=== PATIENT | male | born 2000 | race Caucasian/White ===

== ENCOUNTER 2022-12-05 18:47 | Emergency (ER) | payer OTHER ==
[2022-12-05] MEDS ORDERED: Ondansetron 4 MG/2 ML SDV IVPUSH ONE (21:00)
[2022-12-05] MEDS ORDERED: Lactated Ringers 1,000 ML IV ONE (21:00)
[2022-12-05 21:46] LABS: CARBON DIOXIDE,CO2 24.8 mmol/L (21.0-32.0); POTASSIUM,K 3.9 mmol/L (3.5-5.1)
[2022-12-05 21:48] LABS: CORONAVIRUS COVID-19 NAA NEGATIVE (NEGATIVE); INFLUENZA A NAA NEGATIVE (NEGATIVE); INFLUENZA B NAA NEGATIVE (NEGATIVE); RESPIRATORY SYNCYTIAL VIR NAA NEGATIVE (NEGATIVE)
[2022-12-05] MEDS ORDERED: Iopamidol 755 MG/ML 500 ML Multipack Bottle IVPUSH STA (22:12)
[2022-12-05] MEDS ORDERED: Ertapenem 1 GM in Sodium Chloride 0.9% 50 ML IV ONE (23:08)
[2022-12-06] MEDS ORDERED: Ondansetron 4 MG/2 ML SDV IVPUSH ONE (00:32)
[2022-12-06] MEDS ORDERED: Lactated Ringers 1,000 ML IV ONE (00:32)
[2022-12-06] MEDS ORDERED: Acetaminophen 500 MG Tab PO ONE (01:36)
== END 2022-12-06 01:50 | disposition home or self-care (01) ==
LOC: MW.ED 18:47
DX: K52.9 Noninfective gastroenteritis and colitis, unspecified (principal); Z20.822 Contact with and (suspected) exposure to COVID-19
CPT/HCPCS: 0241U; 36415; 74177; 80053; 81001; 83690; 85025; 96361; 96365; 96375; 96376; 99284; A9270; J1335; J2405; J3490; J7120; Q9967